=== PATIENT | male | born 1975 | race Caucasian/White ===

== ENCOUNTER 2021-06-09 11:42 | Emergency (ER) | payer OTHER ==
[~2021-06-09] VITALS: Ht 180.3 cm; Wt 118.4 kg
== END 2021-06-09 15:23 | disposition home or self-care (01) ==
LOC: ER1 11:42
DX: Z23 Encounter for immunization (principal); U07.1 COVID-19
CPT/HCPCS: 99283; M0243

== ENCOUNTER → 2022-04-04 | Outpatient (CLI) | payer OTHER | LOC: SLEEP 14:32 | DX: R40.0 Somnolence (principal); R06.83 Snoring | CPT/HCPCS: 95810 ==